=== PATIENT | female | born 1960 | race Caucasian/White ===

== ENCOUNTER 2018-06-17 16:29 | Emergency (ER) | payer OTHER ==
[~2018-06-17] VITALS: Ht 167.6 cm; Wt 59.4 kg
[~2018-06-17 16:29] MED LIST: TRAM50TA2 PO
[2018-06-17 16:39] VITALS: Ht 167.6 cm; Wt 59.4 kg
[2018-06-17] MEDS ORDERED: ACETAMINOPHEN 325 MG TAB PO ONE (19:30)
[2018-06-17] MEDS ORDERED: IBUPROFEN 200 MG TAB PO ONE (19:30)
[2018-06-17] MEDS ORDERED: ACET-141 PO (21:27)
[2018-06-17] MEDS ORDERED: HYDR-4011 PO (21:35)
--- NOTE | 2018-06-17 21:35 | ERD ---
ER Documentation Chief Complaint Chief Complaint Complains of facial swelling x since yesterday ROS All systems reviewed and are negative except as per history of present illness. Medications Home Meds Active Scripts Hydrocodone/Acetaminophen (Mingus 5-325 Tablet) 1 Each Tablet, 1 TAB PO Q6H PRN for PAIN, #10 TAB Prov:RADHA PICKETT DO 06/17/18 Acetaminophen* (Acetaminophen*) 500 MG Extra Strength Tablet, 500 MG PO Q4H PRN for PAIN AND OR ELEVATED TEMP, #30 TAB Prov:RADHA PICKETT DO 06/17/18 Reported Medications Tramadol HCl (Tramadol HCl) 50 Mg Tab, 50 MG PO Q6H PRN for PAIN, TAB 03/06/14 Allergies Allergies: Coded Allergies: No Known Allergy (Unverified , 03/08/14) PMhx/Soc Medical and Surgical Hx: pt denies Medical Hx History of Surgery: Yes (L shoulder sx, Appy) Anesthesia Reaction: No Hx Alcohol Use: No Hx Substance Use: No Hx Tobacco Use: No Smoking Status: Never smoker Physical Exam Vitals Vital Signs Date Temp Pulse Resp B/P (MAP) Pulse Ox O2 O2 Flow FiO2 Time Delivery Rate 06/17/18 97.0 84 20 159/85 99 16:39 (109) Physical Exam Const: No acute distress Head: Atraumatic Eyes: Normal Conjunctiva ENT: Normal External Ears, Nose and Mouth. Neck: Full range of motion. No meningismus. Resp: Clear to auscultation bilaterally Cardio: Regular rate and rhythm, no murmurs Abd: Soft, non tender, non distended. Normal bowel sounds Skin: No petechiae or rashes Back: No midline or flank tenderness Ext: No cyanosis, or edema Neur: Awake and alert Psych: Normal Mood and Affect Results 24 hrs Current Medications Medications Dose Sig/Vinayak Start Time Status Last (Trade) Ordered Route PRN Stop Time Admin Dose Reason Admin 650 mg ONCE ONCE 06/17/18 DC 06/17/18 Acetaminophen PO 19:30 19:25 (Tylenol 06/17/18 19:31 Tab) Ibuprofen 400 mg ONCE ONCE 06/17/18 DC 06/17/18 (Motrin) PO 19:30 19:25 06/17/18 19:31 Departure Diagnosis: Primary Impression: Fall Encounter type: initial encounter Qualified Codes: W19.XXXA - Unspecified fall, initial encounter Additional Impression: Contusion of face Encounter type: initial encounter Qualified Codes: S00.83XA - Contusion of other part of head, initial encounter Condition: Fair Patient Instructions: Facial Contusion, No Wakeup RADHA PICKETT DO Jun 17, 2018 21:35
[2018-06-17 23:20] VITALS: BP 165/88; PULSE 63; RESP 18
== END 2018-06-17 23:22 | disposition home or self-care (01) ==
LOC: FTE 16:29
DX: S00.83XA Contusion of other part of head, initial encounter (principal); W19.XXXA Unspecified fall, initial encounter; Y92.9 Unspecified place or not applicable
CPT/HCPCS: 70140; Z7502; Z7610